=== PATIENT | male | born 1985 | race Caucasian/White ===

== ENCOUNTER 2017-01-21 15:40 | Emergency (ER) | payer SELFPAY ==
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
--- NOTE | 2017-01-22 09:47 | CR ---
EXAM DATE: 01/21/17 PATIENT'S AGE: 31 Patient: FEDERICO PHELPS Facility: [place], [place] Site . Site : 1985 Study: XRay Chest Left Ribs w/o chest [id number]/11/2017 5:00:20 PM Ordering Physician: Doctor Martinez Final Report: INDICATION: Pain to left post ribs TECHNIQUE: Rib radiograph 4 views left COMPARISON: None FINDINGS: Cardiovascular and mediastinum: Heart size and vasculature are normal in caliber and appearance. Mediastinum is within normal limits. Lungs and pleural space: Visualized lungs are unremarkable in appearance. No sign of pleural effusion. No pneumothorax is seen. Ribs: No definite acute fractures are identified in the visualized ribs. No osseous rib lesions noted. The apical ribs are excluded. IMPRESSION: 1. No definite radiographic evidence of acute rib injuries seen. Dictated by: Cristi Dumont MD @ 01/21/2017 17:41:12 (Electronic Signature) Report Signed by Proxy. THANIA
== END 2017-01-21 18:00 ==
LOC: MW.ED 15:40
DX: S20.212A Contusion of left front wall of thorax, initial encounter (principal); Y04.0XXA Assault by unarmed brawl or fight, initial encounter; F17.210 Nicotine dependence, cigarettes, uncomplicated
CPT/HCPCS: 71100-26-LT; 71100-LT; 99283; 99284